=== PATIENT | female | born 1945 | race Two or more races ===

== ENCOUNTER 2019-01-06 19:14 | Emergency (ER) | payer MEDICARE, MEDICAID ==
[~2019-01-06] VITALS: Ht 157.5 cm; Wt 63.6 kg
[2019-01-06 19:17] VITALS: BP 172/79
== END 2019-01-06 21:20 | disposition left against medical advice (07) ==
LOC: ER 19:15
DX: R07.89 Other chest pain (principal); I10 Essential (primary) hypertension; G89.29 Other chronic pain
CPT/HCPCS: 71045; 93005; 99284